=== PATIENT | female | born 1990 | race American Indian/Alaskan Native ===

== ENCOUNTER 2020-01-26 20:40 | Outpatient (CLI) | payer MEDICAID ==
[2020-01-26] MEDS ORDERED: LACTATED RINGERS 500 ML IV ONE (21:00)
[2020-01-26 21:04] VITALS: BP 144/97
[2020-01-26 21:32] LABS: Bilirubin,Urine NEG (Negative); Blood,Urine SM (Negative); Color,Urine Yellow (Yellow); Mucus,Urine FEW /HPF; Urobilinogen,Urine < 2.0 mg/dL (<2.0)
[2020-01-26 21:38] LABS: Amphetamine Screen,Urine PRESUMPTIVE NEGATIVE; Benzodiazepines Screen,Urine PRESUMPTIVE NEGATIVE; Cannabinoid Screen,Urine PRESUMPTIVE NEGATIVE; Cocaine Screen,Urine PRESUMPTIVE NEGATIVE; Methadone Screen,Urine PRESUMPTIVE NEGATIVE; Opiate Screen,Urine PRESUMPTIVE NEGATIVE
--- NOTE | 2020-01-26 22:43 | Ultrasound Report ---
US OB limited INDICATION / CLINICAL INFORMATION: labor. COMPARISON: None available. FINDINGS: Within the central placenta, there is an ovoid heterogeneous, relatively isoechoic focus which measur es 8.3 x 5.1 x 10.9 cm. There is no abnormal flow within this. Single viable intrauterine is noted in cephalic presentation with heart rate of 152. The cervix is closed measuring 3 cm. IMPRESSION: 1. Nonspecific isoechoic ovoid focus within the mid placenta, as above. No abnormal increased flow is seen within this. Some degree of partial abruption could have this appearance. Close follow-up is re commended. 2. Single viable intrauterine in cephalic presentation. Cervix is closed. Signer Name: Prasad Murphy MD Signed: 01/26/2020 10:38 PM Workstation Name: [id number]
--- NOTE | 2020-01-26 22:56 | Event Note ---
Date: 01/26/20 received call from BRYAN Carranza @ 2145 placenta abruption noted on u/s. Dr. Spence called and plan of care discussed. Received call from BRYAN Carranza 2151 that bleeding is now increased. Dr. Spence notified, both and ARTEM are in route to assess patient. I received call shortly after that patient was refusing care and wanted to go to [facility] where her doctor has privileges. Spoke with patient via phone while I was in route, advised that patient that she is not stable for transfer. strongly encouraged patient to stay in hospital where we can monitor her. Advised u/s shows signs of abruption, she is bleeding and she may have pre-e again. Advised she and her baby could in the time it takes her to drive to [facility]. patient states "I pray that doesn't happen." When I arrived @ 2215, patient was dressed and sitting in wheelchair, she appears to be having ctx/uncomfortable while sitting in wheelchair. DELFINA Feng was at bedside encouraging patient to stay. Female support person present during discussion. reviewed tracing with patient, advised I felt her baby was in distress and we needed to evaluate her for possible delivery based on her bleeding, elevated b/p, proteinuria, hx pre-e and concern over wellbeing. Patient on the phone with her doctor, states she is wishes to go to [facility] to be cared for by her doctor. Again, encouraged patient to please stay and that she nor her baby are stable. Dillon Ramirez, Ping MATHIS, Radha MAHARAJ present during this discussion. Patient signed form and left hospital with male and female support person via wheelchair. Dr. Spence made aware of findings and conversations.
--- NOTE | 2020-01-26 23:03 | Event Note ---
Date: 01/26/20 Received call from Miranda Bledsoe CN @8384 stating patient presented complaining of bleeding, h/o preeclampsia, US revealed abruption, FHT's normal, she was going to the hospital to assess patient, plan was for admission, evaluate for preeclampsia, close observation. Shortly after that call, Miranda Bledsoe sent a text at 1320 stating she received a call for Dillon DOVE stating patient now has moderate to heavy bleeding. While en route to hospital I received another call from Miranda Bledsoe at 2211 stating patient wants to leave AMA to go to her provide r at [facility], she spoke to the patient by phone because she was on her way to the hospital as well, Miranda Bledsoe attempted to discourage leaving due to extreme risks of demise, maternal , poor outcome. At my arrival@221, patient had already signed AMA papers and left hospital.
== END 2020-01-27 05:00 | disposition home or self-care (01) ==
LOC: TRG 20:40 → LD 20:42 → TRG 01-27 05:00
PROVIDERS: ATTEND Obstetrics & Gynecology
DX: O46.93 Antepartum hemorrhage, unspecified, third trimester (principal); O10.913 Unspecified pre-existing hypertension complicating pregnancy, third trimester; O60.03 Preterm labor without delivery, third trimester; Z3A.30 30 weeks gestation of pregnancy
CPT/HCPCS: 76815; 80307; 81001; 87086; J7120